=== PATIENT | female | born 1940 | race Caucasian/White ===

== ENCOUNTER → 2018-02-12 | Outpatient (CLI) | payer MEDICARE ==
[2017-10-10 15:00] VITALS: BP 125/55
[~2018-02-12] MED LIST: ACYC400T PO; ASPI-612 PO; ASPI325T8 PO; ATOR40TA59 PO; ERGO500027 PO; FEXO180T16 PO; LENA10CA PO; MAGN2400 PO; ONDA4TAB10 PO; POLY17PO29 PO; POTA10TA12 PO; SENN1TAB8 PO; TROS20TA2 PO
--- NOTE | 2018-02-12 15:06 | KCIC ---
CT Abdomen and Pelvis without Intravenous Contrast: History: Right upper quadrant pain. Pain and nausea. Fatigue. . Symptoms for approximately 4 months. Multiple myeloma. Comparison: CT abdomen pelvis October 09, 2017. Technique: After administration of oral contrast only, CT of the abdomen and pelvis was performed. Exposure: One or more of the following individualized dose reduction techniques were utilized for this examination: 1. Automated exposure control 2. Adjustment of the mA and/or kV according to patient size 3. Use of iterative reconstruction technique Findings: Evaluation of solid organs and vascular structures is limited by lack of intravenous contrast. Images of lower chest demonstrate diffuse groundglass opacity, nonspecific. Liver, spleen, pancreas, gallbladder, and bilateral adrenal glands are unremarkable. Bilateral kidneys and ureters are free stone or obstruction. Aortic atherosclerosis is present. No bowel obstruction or inflammation is seen. Uterus is absent. Urinary bladder is unremarkable. No free air or free fluid is seen in the abdomen or pelvis. Lucent lesions are again seen, including those involving the posterior left iliac bone and the right aspect of the sacrum and the L5 level. Left hip demonstrates fixation hardware, incompletely visualized. Impression: 1. No acute abnormality identified in the abdomen or pelvis. 2. Previously identified bone lesions are unchanged. Possibilities include both benign etiology such as hemangiomata versus malignant causes such as myelomatous lesions. 3. Diffuse groundglass opacity involving the lungs, interval development. Correlate with respiratory symptoms. Electronically signed by: Pablo Tobias MD (02/12/2018 3:03 PM) [id number]
== END | disposition home or self-care (01) ==
LOC: KCIC CT 08:22
PROVIDERS: ATTEND Nurse Practitioner
DX: I70.0 Atherosclerosis of aorta (principal); R91.8 Other nonspecific abnormal finding of lung field; Z79.01 Long term (current) use of anticoagulants
CPT/HCPCS: 74176